=== PATIENT | male | born 1945 | race Caucasian/White ===

== ENCOUNTER 2018-04-06 19:19 | Inpatient (IN) | payer MEDICAID ==
[2018-04-06] MEDS: SOD CHLORIDE 0.9% 1,000 ML IV (20:25)
[2018-04-06 20:32] LABS: ADD MAN DIFF? NO
[2018-04-06 20:39] LABS: WHITE BLOOD COUNT 7.5 10^3/ul (4.8-10.8)
[2018-04-06 20:39] LABS: BASOPHILS % 0.4 % (0.0-2.0); EOSINOPHILS # 0.2 10^3/ul (0.0-0.5); EOSINOPHILS % 3.1 % (0.0-7.0); HEMATOCRIT 32.9 % (42.0-52.0); HEMOGLOBIN 10.5 g/dl (14.0-18.0); LYMPHOCYTES # 1.1 10^3/ul (0.8-2.9); LYMPHOCYTES % 14.4 % (15.0-51.0); MEAN CORPUSCULAR HEMOGLOBIN 28.7 pg (29.0-33.0); MEAN CORPUSCULAR HGB CONC 31.9 g/dl (32.0-37.0); MEAN CORPUSCULAR VOLUME 89.9 fl (82.0-101.0); MONOCYTE # 0.7 10^3/ul (0.3-0.9); MONOCYTES % 8.7 % (0.0-11.0); NEUTROPHIL # 5.5 10^3/ul (1.6-7.5); NEUTROPHILS % 72.7 % (39.0-77.0); PLATELET COUNT 186 10^3/UL (140-415); RED BLOOD COUNT 3.66 10^6/ul (4.70-6.10); RED CELL DISTRIBUTION WIDTH 16.6 % (11.5-14.5)
[2018-04-06 20:57] LABS: INR 1.09; PROTIME 14.3 Sec (11.9-14.9); PT RATIO 1.1
[2018-04-06 20:58] LABS: ALANINE AMINOTRANSFERASE 25 IU/L (13-69); ALBUMIN 4.4 g/dl (3.3-4.9); ALBUMIN/GLOBULIN RATIO 1.22; ALKALINE PHOSPHATASE 75 IU/L (42-121); AMYLASE 86 U/L (11-123); ANION GAP 20 (8-16); ASPARTATE AMINO TRANSFERASE 17 IU/L (15-46); BILIRUBIN,INDIRECT 0.3 mg/dl (0-1.1); BILIRUBIN,TOTAL 0.3 mg/dl (0.2-1.3); BLOOD UREA NITROGEN 54 mg/dl (7-20); CALCIUM 9.8 mg/dl (8.4-10.2); CARBON DIOXIDE 29 mmol/L (21-31); CHLORIDE 97 mmol/L (97-110); CREATINE KINASE 44 IU/L (23-200); CREATININE 2.56 mg/dl (0.61-1.24); GLUCOSE 191 mg/dl (70-220); LIPASE 90 U/L (23-300); POTASSIUM 4.2 mmol/L (3.5-5.1); SODIUM 142 mmol/L (135-144)
[2018-04-06 21:09] LABS: B-TYPE NATRIURETIC PEPTIDE 8390 PG/ML (0-125); CK INDEX 1.7; TROPONIN-I 0.032 ng/ml (0.000-0.120)
[2018-04-06 21:10] LABS: CK-MB 0.74 ng/ml (0.0-2.4)
[2018-04-06] MEDS: FUROSEMIDE 40 MG INJ IV (21:26)
[2018-04-06] MEDS: ALBUTEROL 0.083% (NEB) 2.5 MG/3 ML AMP NEB (22:36)
[2018-04-06] MEDS: IPRATROPIUM (NEB) 0.5 MG/2.5 ML AMP NEB (22:36)
[2018-04-06] MEDS ORDERED: morphine 2 MG INJ IV (23:00)
[2018-04-06] MEDS ORDERED: NACL 0.9% 3 ML SYG IV (23:00)
[2018-04-06] MEDS ORDERED: ACETAMINOPHEN 325 MG TAB PO ×2 (23:00)
[2018-04-06] MEDS ORDERED: ONDANSETRON 4 MG INJ IV ×2 (23:00)
[2018-04-07 06:17] LABS: ADD MAN DIFF? NO
[2018-04-07 06:35] LABS: BASOPHILS % 0.5 % (0.0-2.0); EOSINOPHILS # 0.3 10^3/ul (0.0-0.5); EOSINOPHILS % 4.2 % (0.0-7.0); HEMATOCRIT 32.1 % (42.0-52.0); HEMOGLOBIN 10.1 g/dl (14.0-18.0); LYMPHOCYTES # 0.9 10^3/ul (0.8-2.9); MEAN CORPUSCULAR HEMOGLOBIN 28.5 pg (29.0-33.0); MEAN CORPUSCULAR HGB CONC 31.5 g/dl (32.0-37.0); MEAN CORPUSCULAR VOLUME 90.7 fl (82.0-101.0); MEAN PLATELET VOLUME 10.9 fl (7.4-10.4); MONOCYTE # 0.6 10^3/ul (0.3-0.9); MONOCYTES % 8.9 % (0.0-11.0); NEUTROPHIL # 4.4 10^3/ul (1.6-7.5); NEUTROPHILS % 70.9 % (39.0-77.0); PLATELET COUNT 176 10^3/UL (140-415); RED BLOOD COUNT 3.54 10^6/ul (4.70-6.10); RED CELL DISTRIBUTION WIDTH 16.5 % (11.5-14.5)
[2018-04-07 06:35] LABS: WHITE BLOOD COUNT 6.2 10^3/ul (4.8-10.8)
[2018-04-07 06:48] LABS: ALANINE AMINOTRANSFERASE 23 IU/L (13-69); ALBUMIN 3.9 g/dl (3.3-4.9); ALBUMIN/GLOBULIN RATIO 1.14; ALKALINE PHOSPHATASE 69 IU/L (42-121); ANION GAP 18 (8-16); ASPARTATE AMINO TRANSFERASE 14 IU/L (15-46); BILIRUBIN,INDIRECT 0.4 mg/dl (0-1.1); BILIRUBIN,TOTAL 0.4 mg/dl (0.2-1.3); BLOOD UREA NITROGEN 56 mg/dl (7-20); CALCIUM 9.1 mg/dl (8.4-10.2); CARBON DIOXIDE 29 mmol/L (21-31); CHLORIDE 100 mmol/L (97-110); CREATININE 2.57 mg/dl (0.61-1.24); GLUCOSE 185 mg/dl (70-220); MAGNESIUM 2.2 mg/dl (1.7-2.5); POTASSIUM 3.7 mmol/L (3.5-5.1); SODIUM 143 mmol/L (135-144); TOTAL PROTEIN 7.3 g/dl (6.1-8.1)
[2018-04-07 07:18] LABS: THYROID STIMULATING HORMONE 0.973 MIU/L (0.465-4.680)
[2018-04-07] MEDS: INSULIN ASPART [NOVOLOG] 3 ML PEN SC ×4 (07:30→21:00)
[2018-04-07] MEDS ORDERED: GLUCAGON 1 MG INJ IM (07:30)
[2018-04-07] MEDS ORDERED: DEXTROSE 50% 50 ML SYRINGE IV ×2 (07:30)
[2018-04-07] MEDS ORDERED: GLUCOSE GEL 15 GRAM TUBE PO ×2 (07:30)
[2018-04-07] MEDS ORDERED: GLUCOSE GEL 15 GRAM TUBE BUCCAL (07:30)
[2018-04-07 07:59] LABS: HEMOGLOBIN A1C 7.5 % (0-5.9)
[2018-04-07] MEDS: FUROSEMIDE 40 MG INJ IV (09:00)
[2018-04-07] MEDS: TICAGRELOR 90 MG TABLET PO ×2 (09:00→21:04)
[2018-04-07] MEDS: CALCITRIOL 0.25 MCG CAP PO (09:00)
[2018-04-07] MEDS: FINASTERIDE 5 MG TAB PO (09:00)
[2018-04-07] MEDS: GABAPENTIN 300 MG CAP PO ×2 (09:00→21:02)
[2018-04-07] MEDS: FERROUS SULFATE (EC) 325 MG TAB PO (09:00)
[2018-04-07] MEDS: LISINOPRIL 5 MG TAB PO (09:00)
[2018-04-07] MEDS: FUROSEMIDE 40 MG TAB PO (13:34)
[2018-04-07] MEDS ORDERED: FUROSEMIDE 40 MG INJ IV (18:00)
[2018-04-07] MEDS: ATORVASTATIN 80 MG TAB PO (21:02)
[2018-04-07] MEDS: TAMSULOSIN (SR) 0.4 MG CAP PO (21:02)
[2018-04-07] MEDS: EZETIMIBE 10 MG TAB PO (21:06)
[2018-04-07] MEDS: GUAIFENESIN/DM 5ML CUP PO (21:07)
[2018-04-08] MEDS: GUAIFENESIN/DM 5ML CUP PO ×2 (08:42→14:53)
[2018-04-08] MEDS: CALCITRIOL 0.25 MCG CAP PO (08:42)
[2018-04-08] MEDS: FINASTERIDE 5 MG TAB PO (08:42)
[2018-04-08] MEDS: GABAPENTIN 300 MG CAP PO ×2 (08:43→20:37)
[2018-04-08] MEDS: FUROSEMIDE 40 MG TAB PO (08:43)
[2018-04-08] MEDS: LISINOPRIL 5 MG TAB PO (08:44)
[2018-04-08] MEDS: FERROUS SULFATE (EC) 325 MG TAB PO (08:45)
[2018-04-08] MEDS: FLUTICASONE/VILANTEROL 200-25 INH DEVICE INH (08:45)
[2018-04-08] MEDS: TICAGRELOR 90 MG TABLET PO ×2 (08:50→20:37)
[2018-04-08] MEDS: INSULIN ASPART [NOVOLOG] 3 ML PEN SC ×7 (08:57→21:00)
[2018-04-08] MEDS ORDERED: morphine LIQ (10 MG/5 ML) CUP PO (13:00)
[2018-04-08] MEDS: EZETIMIBE 10 MG TAB PO (20:38)
[2018-04-08] MEDS: TAMSULOSIN (SR) 0.4 MG CAP PO (20:43)
[2018-04-08] MEDS: ATORVASTATIN 80 MG TAB PO (20:45)
[2018-04-09 05:35] LABS: ANION GAP 16 (8-16); BLOOD UREA NITROGEN 59 mg/dl (7-20); CALCIUM 8.9 mg/dl (8.4-10.2); CARBON DIOXIDE 26 mmol/L (21-31); CHLORIDE 105 mmol/L (97-110); CREATININE 2.85 mg/dl (0.61-1.24); GLUCOSE 128 mg/dl (70-220); MAGNESIUM 2.1 mg/dl (1.7-2.5); PHOSPHORUS 4.5 mg/dl (2.5-4.9); POTASSIUM 3.8 mmol/L (3.5-5.1); SODIUM 143 mmol/L (135-144)
[2018-04-09] MEDS: INSULIN ASPART [NOVOLOG] 3 ML PEN SC ×7 (09:17→20:43)
[2018-04-09] MEDS: FLUTICASONE/VILANTEROL 200-25 INH DEVICE INH (09:25)
[2018-04-09] MEDS: FERROUS SULFATE (EC) 325 MG TAB PO (09:26)
[2018-04-09] MEDS: GABAPENTIN 300 MG CAP PO ×2 (09:26→20:39)
[2018-04-09] MEDS: TICAGRELOR 90 MG TABLET PO ×2 (09:27→20:45)
[2018-04-09] MEDS: FINASTERIDE 5 MG TAB PO (09:28)
[2018-04-09] MEDS: FUROSEMIDE 40 MG TAB PO (09:28)
[2018-04-09] MEDS: LISINOPRIL 5 MG TAB PO (09:28)
[2018-04-09] MEDS: CALCITRIOL 0.25 MCG CAP PO (09:29)
[2018-04-09] MEDS: GUAIFENESIN/DM 5ML CUP PO ×2 (12:49→17:28)
[2018-04-09] MEDS: ATORVASTATIN 80 MG TAB PO (20:39)
[2018-04-09] MEDS: EZETIMIBE 10 MG TAB PO (20:40)
[2018-04-09] MEDS: TAMSULOSIN (SR) 0.4 MG CAP PO (20:40)
[2018-04-10] MEDS: CALCITRIOL 0.25 MCG CAP PO (08:24)
[2018-04-10] MEDS: TICAGRELOR 90 MG TABLET PO ×2 (08:26→20:34)
[2018-04-10] MEDS: INSULIN ASPART [NOVOLOG] 3 ML PEN SC ×7 (08:27→20:29)
[2018-04-10] MEDS: FINASTERIDE 5 MG TAB PO (08:29)
[2018-04-10] MEDS: FUROSEMIDE 40 MG TAB PO (08:29)
[2018-04-10] MEDS: FERROUS SULFATE (EC) 325 MG TAB PO (08:30)
[2018-04-10] MEDS: FLUTICASONE/VILANTEROL 200-25 INH DEVICE INH (08:30)
[2018-04-10] MEDS: GABAPENTIN 300 MG CAP PO ×2 (08:30→20:25)
[2018-04-10] MEDS: LISINOPRIL 5 MG TAB PO (08:30)
[2018-04-10] MEDS: GUAIFENESIN/DM 5ML CUP PO (12:33)
[2018-04-10] MEDS: ATORVASTATIN 80 MG TAB PO (20:25)
[2018-04-10] MEDS: EZETIMIBE 10 MG TAB PO (20:25)
[2018-04-10] MEDS: TAMSULOSIN (SR) 0.4 MG CAP PO (20:34)
[2018-04-11] MEDS: INSULIN ASPART [NOVOLOG] 3 ML PEN SC ×4 (07:59→12:25)
[2018-04-11] MEDS: GABAPENTIN 300 MG CAP PO (08:36)
[2018-04-11] MEDS: FLUTICASONE/VILANTEROL 200-25 INH DEVICE INH (08:36)
[2018-04-11] MEDS: CALCITRIOL 0.25 MCG CAP PO (08:37)
[2018-04-11] MEDS: FUROSEMIDE 40 MG TAB PO (08:37)
[2018-04-11] MEDS: LISINOPRIL 5 MG TAB PO (08:38)
[2018-04-11] MEDS: FERROUS SULFATE (EC) 325 MG TAB PO (08:38)
[2018-04-11] MEDS: FINASTERIDE 5 MG TAB PO (08:39)
[2018-04-11] MEDS: TICAGRELOR 90 MG TABLET PO (08:40)
[2018-04-11] MEDS: GUAIFENESIN/DM 5ML CUP PO (08:40)
== END 2018-04-11 16:43 | disposition home health service (06) | DRG 291 ==
LOC: MS4 22:39 → MS1 04-07 23:59 → E/R 19:19
DX: I13.0 Hypertensive heart and chronic kidney disease with heart failure and stage 1 through stage 4 chronic kidney disease, or unspecified chronic kidney disease (principal); I50.23 Acute on chronic systolic (congestive) heart failure; N18.4 Chronic kidney disease, stage 4 (severe); N17.9 Acute kidney failure, unspecified; E11.22 Type 2 diabetes mellitus with diabetic chronic kidney disease; I25.10 Atherosclerotic heart disease of native coronary artery without angina pectoris; N40.0 Benign prostatic hyperplasia without lower urinary tract symptoms; E11.51 Type 2 diabetes mellitus with diabetic peripheral angiopathy without gangrene; I25.5 Ischemic cardiomyopathy; I65.23 Occlusion and stenosis of bilateral carotid arteries; Z86.73 Personal history of transient ischemic attack (TIA), and cerebral infarction without residual deficits; Z95.810 Presence of automatic (implantable) cardiac defibrillator; Z79.4 Long term (current) use of insulin; Z95.5 Presence of coronary angioplasty implant and graft; Z95.3 Presence of xenogenic heart valve
CPT/HCPCS: 70450; 71045; 80048; 80053; 82150; 82550; 82553; 82962; 83036; 83690; 83735; 83880; 84100; 84443; 84484; 85025; 85610; 85730; 87040; 93005; 93306; 94664; 96374; 97110; 97116; 97163; 99285-25